=== PATIENT | female | born 1955 | race Caucasian/White ===

== ENCOUNTER 2017-04-05 18:12 | Emergency (ER) | payer OTHER ==
[~2017-04-05] VITALS: Ht 170.2 cm; Wt 63.0 kg
[~2017-04-05 18:12] MED LIST: LAMOTRIGINE200 M2 PO; RALOXIFENE HCL60 MG PO; SUMATRIPTAN SU100 M1 PO; VENLAFAXINE HCL75 M1 PO; ZOLPIDEM TARTRAT5 M1 PO
[2017-04-05 18:41] LABS: ABSOLUTE BASOPHIL COUNT 0 /CUMM (0.0-0.2); ABSOLUTE EOSINOPHIL COUNT 0.2 /CUMM (0.0-0.7); ABSOLUTE GRANULOCYTE CT 5.6 /CUMM (1.4-6.5); ABSOLUTE LYMPH COUNT 3.1 /CUMM (1.2-3.4); ABSOLUTE MONOCYTE COUNT 0.5 /CUMM (0.10-0.60); BASOPHIL % 0.4 % (0.0-2.0); EOSINOPHIL % 1.6 % (0-5); GRANULOCYTE % 59.9 % (42.2-75.2); HEMATOCRIT 36.4 % (37-47); MEAN CORPUSCULAR HGB 30.2 PG (27.0-31.0); MEAN CORPUSCULAR HGB CONC 33.2 G/DL (33.0-37.0); MEAN CORPUSCULAR VOLUME 91.1 FL (81.0-99.0); PLATELET COUNT 277 /CUMM (130-400); RBC DISTRIBUTION WIDTH 12.9 % (11.5-14.5); RED BLOOD CELL CT 3.99 /CUMM (4.20-5.40); WHITE BLOOD CELL COUNT 9.4 /CUMM (4.8-10.8)
[2017-04-05] MEDS ORDERED: VITAMIN D250000 UNIT PO (18:50)
[2017-04-05] MEDS ORDERED: ASPIRIN EC81 M1 PO (18:51)
[2017-04-05] MEDS ORDERED: MAXALT10 M1 PO (18:51)
[2017-04-05] MEDS ORDERED: COMPAZINE10 M1 PO (18:51)
[2017-04-05] MEDS ORDERED: EVISTA60 MG PO (18:51)
[2017-04-05] MEDS ORDERED: FISH OIL300 MG PO (18:52)
--- NOTE | 2017-04-05 18:56 | ED GENERAL ADULT ---
History of Present Illness General Chief Complaint: Chest Pain Stated Complaint: CP, JAW PAIN Source: patient Exam Limitations: no limitations Vital Signs & Intake/Output Vital Signs & Intake/Output Vital Signs Date Time Temp Pulse Resp B/P B/P Pulse O2 O2 Flow FiO2 Mean Ox Delivery Rate 04/054 97.1 73 18 119/58 97 04/05 1821 97.2 85 18 132/70 98 Room Air Allergies Coded Allergies: No Known Allergies (03/02/16) Reconcile Medications Aspirin (Ecotrin*) 81 MG TABLET.DR 1 TAB PO DAILY HEART/BLOOD (Reported) Ergocalciferol (Vitamin D2) (Vitamin D2) 50,000 UNIT CAPSULE 1 CAP PO Q2W SUPPLEMENT (Reported) Lamotrigine 200 MG TABLET 1 TAB PO DAILY BIPOLAR (Reported) [place]-3 Fatty Acids (Fish Oil) (Unknown Strength) CAPSULE (Unknown Dose) PO DAILY SUPPLEMENT (Reported) Prochlorperazine Maleate (Compazine) 10 MG TABLET 1 TAB PO PRN MIGRAINES ( Reported) Raloxifene Hydrochloride (Evista) 60 MG TABLET 1 TAB PO DAILY OSTEOPENIA ( Reported) Rizatriptan Benzoate (Maxalt) 10 MG TABLET 1 TAB PO AD PRN MIGRAINES ( Reported) Venlafaxine HCl (Venlafaxine HCl ER) 75 MG CAP.ER.24H 1 CAP PO TID BIPOLAR ( Reported) Zolpidem Tartrate 5 MG TABLET 1 TAB PO QPMP SLEEP AIDE (Reported) Triage Note: 61 YO FEMALE TO TRIAGE C/O STABBING PAIN IN CENTER OF CHEST X30 MINTUES. STATES PAIN WENT INTO JAW. STATES SHE HAD SOB WHEN THE PAIN FIRST STARTED. STATES WAS SITITNG DOWN WHEN THE PAIN STARTED. STATES PAIN HAS GOTTEN BETTER, 10 AT THIS TIME. EKG COMPLTED ON ARRIVAL. BLOOD WORK DRAWN AND SENT TO LAB FROM TRIAGE Triage Nurses Notes Reviewed? yes HPI: 61-year-old female with a history of anxiety, bipolar disorder, migraines presenting with an episode of sharp substernal chest pain radiating to the jaw that began about 30 minutes prior to arrival and has been gradually self improving. Episode was associated with some shortness of breath which has since resolved. Denies diaphoresis, nausea, vomiting, lightheadedness, dizziness. No cardiac history. Has never had prior stress testing done. (KAITLIN JARQUIN,BIJAN) Past History Travel History Traveled to [place] past 21 day No Medical History Any Pertinent Medical History? see below for history Neurological: migraine EENT: NONE Cardiovascular: NONE Respiratory: NONE Gastrointestinal: NONE Hepatic: NONE Renal: NONE Musculoskeletal: NONE Psychiatric: anxiety, bipolar disease, depression Endocrine: NONE Blood Disorders: NONE Cancer(s): NONE EMPLOYMENT TRAINER/Reproductive: NONE Tetanus Vaccine: 08/22/16 Surgical History Surgical History: non-contributory Psychosocial History What is your primary language Kyrgyz Tobacco Use: Never used Family History Hx Contributory? Yes (Dad from [place] in 60's) (KAITLIN JARQUIN,BIJAN) Review of Systems Review of Systems Constitutional: Reports: no symptoms. Respiratory: Reports: short of breath. Denies: cough, hemoptysis, sputum production, wheezing. Cardiovascular: Reports: chest pain. Denies: edema, palpitations, syncope. GI: Reports: no symptoms. Genitourinary: Reports: no symptoms. Musculoskeletal: Reports: no symptoms. Neurological/Psychological: Reports: no symptoms. (BIJAN MADRIGAL PA-C) Physical Exam Physical Exam General Appearance: well developed/nourished, no apparent distress, comfortable Head: atraumatic Respiratory: normal breath sounds, chest non-tender, lungs clear Cardiovascular: regular rate/rhythm, normal peripheral pulses Neurologic/Psych: alert, oriented x 3 Skin: intact, normal color Core Measures ACS in differential dx? Yes CVA/TIA Diagnosis: No Severe Sepsis Present: No Septic Shock Present: No (BIJAN MADRIGAL PA-C) Progress Differential Diagnoses I considered the following diagnoses in my evaluation of the patient: [OR versus angina versus pneumonia versus pleurisy versus pleural effusion versus GERD versus muscle strain] Plan of Care: Orders Procedure Date/time Status TROPONIN LEVEL 04/05 2100 Complete Add-on Test (ER Only) 04/05 184 Active PHOSPHORUS 04/05 182 Complete MAGNESIUM 04/05 182 Complete TROPONIN LEVEL 04/05 182 Complete COMPREHENSIVE METABOLIC PANEL 04/05 1824 Complete CBC WITHOUT DIFFERENTIAL 04/05 1824 Complete EKG 04/05 1814 Active Laboratory Tests 04/05/170: Troponin I < 0.01 04/05/171824: Anion Gap 10, Estimated GFR > 60, BUN/Creatinine Ratio 38.6 H, Glucose 88, Calcium 9.1, Phosphorus 3.2, Magnesium 2.1, Total Bilirubin 0.2, AST 28, ALT 37, Alkaline Phosphatase 79, Troponin I < 0.01, Total Protein 7.0, Albumin 4.3, Globulin 2.7, Albumin/Globulin Ratio 1.6, CBC w Diff NO MAN DIFF REQ, RBC 3.99 L, MCV 91.1, MCH 30.2, RDW 12.9, MPV 8.0, Gran % 59.9, Lymphocytes % 32.8, Monocytes % 5.3, Eosinophils % 1.6, Basophils % 0.4, Absolute Granulocytes 5.6, Absolute Lymphocytes 3.1, Absolute Monocytes 0.5, Absolute Eosinophils 0.2, Absolute Basophils 0, PUBS MCHC 33.2 EKG unchanged from priors with no acute ST or T-wave changes. Chest x-ray unremarkable. Labs unremarkable including negative troponin. Second troponin pending. (BIJAN MADRIGAL PA-C) Initial ED EKG: normal axis, rhythm (sinus), rate (85), RBBB (incomplete, unchanged), no ST T wave changes (BIJAN MADRIGAL PA-C) Departure Departure Disposition: HOME OR SELF CARE Condition: Stable Clinical Impression Primary Impression: Chest pain Departure Forms: Customer Survey General Discharge Information (BIJAN MADRIGAL PA-C) Departure Referrals: YULIANA VALVERDE MD (PCP/Family) [facility] Additional Instructions: Follow up with Dr. Salgado (cardiology) return for any concerns PA/SHREDDING MACHINE TENDER Co-Sign Statement Statement: ED Attending supervision documentation- [x] I saw and evaluated the patient. I have also reviewed all the pertinent lab results and diagnostic results. I agree with the findings and the plan of care as documented in the PA's/SHREDDING MACHINE TENDER's documentation. [x] I have reviewed the ED Record and agree with the PA's/SHREDDING MACHINE TENDER's documentation. [] Additions or exceptions (if any) to the PAs/SHREDDING MACHINE TENDER's note and plan are summarized below: [] (MUNIRA PALOMO,ANABELL Villanueva) Critical Care Note Critical Care Note Critical Care Time: non-applicable (BIJAN MADRIGAL PA-C)
--- NOTE | 2017-04-05 19:24 | RADIOLOGY REPORT ---
EXAMINATION: XR CHEST CLINICAL INFORMATION: Chest pain. COMPARISON: None TECHNIQUE: 2 views of the chest were obtained. FINDINGS: No airspace opacities or pleural effusions are seen. A small rounded density projecting over the left lower lung field is most consistent with the patient's nipple shadow. No acute osseous abnormality is seen. The cardiomediastinal silhouette is normal. There is a scoliotic curvature of the thoracolumbar spine and kyphosis. IMPRESSION: Clear lungs. No acute cardiopulmonary process. Kyphoscoliosis of the spine.
[2017-04-05 22:15] VITALS: BP 121/64
== END 2017-04-05 22:19 ==
LOC: ERH 18:12
PROVIDERS: Emergency Medicine
DX: R07.89 Other chest pain (principal)
CPT/HCPCS: 93005; 93010